=== PATIENT | female | born 1960 | race Two or more races ===

== ENCOUNTER 2017-04-19 17:28 | Emergency (ER) | payer OTHER, MEDICAID ==
[~2017-04-19] VITALS: Ht 152.4 cm; Wt 58.2 kg
[2017-04-19 17:41] VITALS: BP 129/79
[2017-04-19 19:07] LABS: HEMATOCRIT 38.9 % (34.6-47.8); HEMOGLOBIN 13.1 g/dL (11.7-16.4)
[2017-04-19 19:18] LABS: BLOOD UREA NITROGEN 12 mg/dL (7-18)
[2017-04-19] MEDS ORDERED: PROMETHAZINE 25MG TABLET PO ONE (20:00)
== END 2017-04-19 21:07 | disposition home or self-care (01) ==
LOC: ED 20:00
DX: S06.0X0A Concussion without loss of consciousness, initial encounter (principal); R93.0 Abnormal findings on diagnostic imaging of skull and head, not elsewhere classified; B34.9 Viral infection, unspecified; I10 Essential (primary) hypertension; W18.39XA Other fall on same level, initial encounter; Y93.01 Activity, walking, marching and hiking; Y92.480 Sidewalk as the place of occurrence of the external cause; Y99.8 Other external cause status
CPT/HCPCS: 36415; 70450; 71020; 80048; 82040; 85025; 99285; Q0169